=== PATIENT | male | born 1960 | race African-American/Black ===

== ENCOUNTER 2016-12-01 14:41 | Emergency (ER) | payer OTHER ==
--- NOTE | ~2016-12-01 | CR63 ---
[facility] A Service of [facility] & [facility] RADIOLOGY TEXT RESULTS PATIENT: LISA APARICIO LOCATION: CFTX : 64 UNIT #: [id number] AGE: [address]: Tri Henning SEX: M ORDER DR: [id number] [facility] [address] [place], [place] [address] [id number] E MR#: [id number] Acc #: [id number] NAME: LISA APARICIO : 1960 SEX: M STUDY DATE/TIME: 12/01/2016 16:54 UNIT: [facility] ROOM: STUDY DESCRIPTION: CR Chest 2 View Attending Physician: Tri Henning Pa-C Ordering Physician: Tri Henning Pa-C Primary Care Physician: Primary Care Physician No MEDICAL IMAGING REPORT This report is preliminary unless electronic signature is present EXAM PA and lateral chest HISTORY SUPPLIED Cough, congestion, chest pain for 3 days. FINDINGS PA and lateral views are obtained. The cardiovascular configuration is normal and the lungs are clear. CONCLUSION Negative chest. Dictated by... Dayron Castillo M.D. THIS IS AN ELECTRONICALLY VERIFIED REPORT Dayron Castillo M.D. at 12/02/2016 7:28 AM Navi TD: 12/01/2016 22:55 JOB #: [id number] MEDICAL IMAGING REPORT Page 1 of 1 COPY
== END 2016-12-01 17:42 | disposition home or self-care (01) ==
LOC: CFTX 14:41 → CED 14:41 → CFTX 15:52
DX: J44.9 Chronic obstructive pulmonary disease, unspecified (principal); I10 Essential (primary) hypertension; F17.210 Nicotine dependence, cigarettes, uncomplicated
CPT/HCPCS: 71020; 94640; 99283